=== PATIENT | female | born 1970 | race Caucasian/White ===

== ENCOUNTER 2020-12-21 23:49 | Emergency (ER) | payer BC ==
--- NOTE | 2020-12-22 00:13 | EDM.PDOC ---
ED HPI GENERAL MEDICAL PROBLEM - General Chief Complaint: Chest Pain Stated Complaint: CHEST PAIN Time Seen by Provider: 12/22/20 00:12 Source of Information: Reports: Patient History Limitations: Reports: No Limitations - History of Present Illness INITIAL COMMENTS - FREE TEXT/NARRATIVE: Jennifer complains of CP and SOB a few min before arrival Got better on arrival. BP was 212 systolic at home.The Pain was left sided,sharp. Now it has improved. She does not endorse any stress or anxiety. Previously healthy with no CAD,or HTN. Does not smoke. - Related Data Allergies Allergy/AdvReac Type Severity Reaction Status Date / Time clindamycin Allergy Rash Verified 12/22/20 00:08 hydrocodone Allergy Rash Verified 12/22/20 00:08 Penicillins Allergy Rash Verified 12/22/20 00:08 Home Meds: Home Meds Loratadine [Claritin] 10 mg PO BEDTIME 12/22/20 [History] Multivitamin [Gummi Bear Multivitamin] 1 tab PO DAILY 12/22/20 [History] Social & Family History - Tobacco Use Tobacco Use Status *Q: Never Tobacco User - Recreational Drug Use Recreational Drug Use: No ED ROS GENERAL - Review of Systems Review Of Systems: Comprehensive ROS is negative, except as noted in HPI. ED EXAM, GENERAL - Physical Exam Exam: See Below Exam Limited By: No Limitations General Appearance: Alert, WD/WN, No Apparent Distress Ears: Normal External Exam, Normal Canal, Hearing Grossly Normal, Normal TMs Ear Exam: Bilateral Ear: Auricle Normal, Canal Normal, TM normal Neck: Normal Inspection Respiratory/Chest: No Respiratory Distress, Lungs Clear Cardiovascular: Normal Peripheral Pulses, Regular Rate, Rhythm Psychiatric: Normal Affect, Normal Mood #1 Interpretation EKG Date: 12/22/20 Rhythm: NSR [place]: Normal P-Wave: Present Comparison: NA - No Prior EKG Course - Vital Signs Last Recorded V/S: Last Vital Signs Temp 98 F 12/22/20 00:40 Pulse 80 12/22/20 01:10 Resp 16 12/22/20 01:10 BP 159/89 H 12/22/20 01:10 Pulse Ox 98 12/22/20 01:10 - Orders/Labs/Meds Orders: Active Orders 24 hr Category Date Time Status CXR [Chest 2V] [CR] Stat Exams 12/22/20 00:11 Taken EKG 12 Lead [EK] Routine Ther 12/22/20 00:11 Ordered Labs: Laboratory Tests 12/22/20 12/22/20 12/22/20 Range/Units 00:20 00:20 00:20 WBC 8.7 (3.0-10.3) x10-3/uL RBC 4.51 (3.60-5.20) x10(6)uL Hgb 14.1 (11.4-15.5) g/dL Hct 42.5 (34.2-48.2) % MCV 94.2 (76.7-100.5) fL MCH 31.2 (23.9-33.9) pg MCHC 33.1 (31.9-34.8) g/dL RDW 12.0 L (12.3-16.5) % Plt Count 239 (151-488) x10(3)uL MPV 8.5 (7.1-12.4) fL Neut % (Auto) 51.9 (30.8-76.2) % Lymph % (Auto) 37.9 (18.4-52.1) % [place] % (Auto) 6.9 (4.4-15.7) % Eos % (Auto) 2.9 (0.6-8.1) % Baso % (Auto) 0.4 (0.2-1.5) % Neut # (Auto) 4.5 (1.5-6.3) x10-3/uL Lymph # (Auto) 3.3 (1.0-4.4) x10-3/uL [place] # (Auto) 0.6 (0.3-1.0) x10-3/uL Eos # (Auto) 0.2 (0.0-0.8) x10-3/uL Baso # (Auto) 0.0 (0.0-0.1) x10-3/uL D-Dimer, Quantitative 0.21 (0.0-0.59) mg/LFEU Sodium 141 (135-145) mmol/L Potassium 3.9 (3.5-5.3) mmol/L Chloride 101 (100-110) mmol/L Carbon Dioxide 31 (21-32) mmol/L BUN 14 (7-18) mg/dL Creatinine 0.8 (0.55-1.02) mg/dL Est Cr Clr Drug Dosing 80.51 mL/min Estimated GFR (MDRD) > 60 (>60) BUN/Creatinine Ratio 17.5 (9-20) Glucose 123 H (80-116) mg/dL Calcium 9.7 (8.6-10.2) mg/dL Troponin I (4.0-60.3) pg/mL 12/22/20 Range/Units 00:20 WBC (3.0-10.3) x10-3/uL RBC (3.60-5.20) x10(6)uL Hgb (11.4-15.5) g/dL Hct (34.2-48.2) % MCV (76.7-100.5) fL MCH (23.9-33.9) pg MCHC (31.9-34.8) g/dL RDW (12.3-16.5) % Plt Count (151-488) x10(3)uL MPV (7.1-12.4) fL Neut % (Auto) (30.8-76.2) % Lymph % (Auto) (18.4-52.1) % [place] % (Auto) (4.4-15.7) % Eos % (Auto) (0.6-8.1) % Baso % (Auto) (0.2-1.5) % Neut # (Auto) (1.5-6.3) x10-3/uL Lymph # (Auto) (1.0-4.4) x10-3/uL [place] # (Auto) (0.3-1.0) x10-3/uL Eos # (Auto) (0.0-0.8) x10-3/uL Baso # (Auto) (0.0-0.1) x10-3/uL D-Dimer, Quantitative (0.0-0.59) mg/LFEU Sodium (135-145) mmol/L Potassium (3.5-5.3) mmol/L Chloride (100-110) mmol/L Carbon Dioxide (21-32) mmol/L BUN (7-18) mg/dL Creatinine (0.55-1.02) mg/dL Est Cr Clr Drug Dosing mL/min Estimated GFR (MDRD) (>60) BUN/Creatinine Ratio (9-20) Glucose (80-116) mg/dL Calcium (8.6-10.2) mg/dL Troponin I < 4.0 L (4.0-60.3) pg/mL Departure - Departure Time of Disposition: 01:00 Disposition: Home, Self-Care 01 Clinical Impression: Chest pain Qualifiers: Chest pain type: unspecified Qualified Code(s): R07.9 - Chest pain, unspecified Instructions: DASH Eating Plan, Hypertension, Adult, [id number], Preventing Hypertension, Managing Your Hypertension Referrals: Jenny Mcduffie NP [Primary Care Provider] - PCP,None [Family Provider] - () Forms: ED Department Discharge Care Plan Goals: Follow up with Robin Mcduffie today Sepsis Event Note (ED) - Evaluation Sepsis Screening Result: No Definite Risk - Focused Exam Vital Signs: Vital Signs Temp Pulse Resp BP BP Pulse Ox 12/22/20 01:10 80 16 159/89 H 98 12/22/20 01:00 72 16 169/86 H 97 12/22/20 00:40 98 F 74 16 153/76 H 98 12/22/20 00:20 75 16 178/80 H 100 12/22/20 00:05 74 16 159/72 H 100 12/21/20 23:50 78 24 H 194/100 H 98 - Problem List & Annotations (1) Chest pain SNOMED Code(s): 02636178 Code(s): R07.9 - CHEST PAIN, UNSPECIFIED Status: Acute Qualifiers: Chest pain type: unspecified Qualified Code(s): R07.9 - Chest pain, unspecified (2) HTN (hypertension) SNOMED Code(s): 08334162 Code(s): I10 - ESSENTIAL (PRIMARY) HYPERTENSION Status: Acute Qualifiers: Hypertension type: unspecified Qualified Code(s): I10 - Essential (primary) hypertension - Problem List Review Problem List Initiated/Reviewed/Updated: Yes - My Orders Last 24 Hours: My Active Orders 12/22/20 00:11 CXR [Chest 2V] [CR] Stat EKG 12 Lead [EK] Routine - Assessment/Plan Last 24 Hours: My Active Orders 12/22/20 00:11 CXR [Chest 2V] [CR] Stat EKG 12 Lead [EK] Routine Plan: Patient did not need any intervention,as she was chest pain free at arrival and through out the ED stay. CXR,EKG,labs were all normal.BP was in the 150s systolic.DC home,advised to see PCP later this morning for BP check,chest pain follow up,.Consider stress test.
--- NOTE | 2020-12-22 11:05 | CR ---
INDICATION: Short of breath. CHEST TWO VIEWS: PA and lateral views of the chest were obtained 12/22/20 - no comparison. The heart is normal in size and shape. Mediastinum is unremarkable. Moderate degenerative change is noted in the mid thoracic spine at one level. There may be some narrowed disc spaces in the mid thoracic spine additionally mostly anteriorly. Exogenous obesity is suggested. A definite active infiltrate or effusion was not identified. However, there is prominent bronchial wall cuffing at the lung bases - lower lung rendon which may represent active peribronchial disease and should be correlated clinically. IMPRESSION: 1. Prominent bronchial wall cuffing at the lung bases may represent active peribronchial disease and/or fibrosis - correlate clinically. 2. Exogenous obesity. 3. 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 MTDD
--- NOTE | 2020-12-23 19:52 | PCM.EKG ---
#1 Interpretation EKG Date: 12/21/20 Rhythm: NSR [place]: Normal P-Wave: Present QRS: Normal Comparison: NA - No Prior EKG
== END 2020-12-22 01:15 | disposition home or self-care (01) ==
LOC: FB.ED 23:49
DX: R07.9 Chest pain, unspecified (principal); Z88.0 Allergy status to penicillin; Z88.1 Allergy status to other antibiotic agents; Z88.5 Allergy status to narcotic agent
CPT/HCPCS: 36415; 71046; 80048; 84484; 85025; 85379; 93005; 99285-25

== ENCOUNTER 2024-10-14 06:30 | Emergency (ER) | payer BC ==
[2024-10-14] MEDS: hydrALAZINE 20 MG/ML SDV IM STA ×2 (06:54→06:56)
[2024-10-14] MEDS: cloNIDine 0.1 MG Tab PO ONE (06:56)
== END 2024-10-14 07:02 | disposition home or self-care (01) ==
LOC: FB.ED 06:30
DX: I10 Essential (primary) hypertension (principal); Z88.1 Allergy status to other antibiotic agents; Z88.5 Allergy status to narcotic agent; Z88.0 Allergy status to penicillin; Z79.899 Other long term (current) drug therapy
CPT/HCPCS: 96372; 99283; J0360